=== PATIENT | male | born 1985 | race Caucasian/White ===

== ENCOUNTER 2022-05-19 15:09 | Outpatient (REF) | payer OTHER, SELFPAY | END 2022-05-19 15:10 | disposition home or self-care (01) | LOC: HO.LNP 15:09 | PROVIDERS: Visit Provider Hospitalist | DX: R35.0 Frequency of micturition (principal); R31.9 Hematuria, unspecified | CPT/HCPCS: 87086 ==

== ENCOUNTER 2022-06-19 09:16 | Outpatient (REF) | payer OTHER, SELFPAY ==
[2022-06-19 11:28] LABS: Hematocrit 45.8 % (42.0-52.0); Hemoglobin 14.8 g/dl (14.0-18.0); Mean Corpuscular HGB Conc 32.3 g/dl (31.0-36.0); Mean Corpuscular Hemoglobin 29.2 pg (27.0-33.0); Mean Corpuscular Volume 90.5 fL (80.0-98.0); Mean Platelet Volume 10.3 fL (9.4-12.4); Platelet Count 248 X10*3/uL (160-400); Red Blood Count 5.06 X10*6/uL (4.60-5.80); Red Cell Distribution Width 12.6 % (11.0-16.0); White Blood Count 6.5 X10*3/uL (4.8-10.8)
[2022-06-19 11:46] LABS: Alanine Aminotransferase 48 U/L (0-40); Albumin Level 4.2 g/dL (3.5-5.0); Alkaline Phosphatase 55 U/L (39-117); Anion Gap 16 (12-20); Aspartate Amino Transferase 26 U/L (5-37); Bilirubin Total 0.4 mg/dL (0.0-1.0); Blood Urea Nitrogen 12 mg/dL (9-16); Calcium 9.5 mg/dL (8.4-10.2); Carbon Dioxide 24 mmol/L (22-29); Chloride 106 mmol/L (96-108); Cholesterol 248 mg/dL; Estimated Glomerular Filt Rate > 60; Glucose Fasting 113 mg/dL (60-99); HDL Cholesterol 33 mg/dL; Potassium 4.5 mmol/L (3.3-5.1); Sodium 141 mmol/L (135-145); Triglycerides 444 mg/dL
[2022-06-19 11:59] LABS: TSH reflex Free T4 0.76 uIU/mL (0.32-4.0)
== END 2022-06-19 09:17 | disposition home or self-care (01) ==
LOC: HO.WFDLDS 09:16
PROVIDERS: Visit Provider Hospitalist
DX: Z00.00 Encounter for general adult medical examination without abnormal findings (principal); G47.19 Other hypersomnia
CPT/HCPCS: 36415; 80053; 80061; 84443; 85027

== ENCOUNTER → 2022-06-19 09:43 | Outpatient (REF) | payer OTHER, SELFPAY | LOC: HO.SL 09:43 | PROVIDERS: Visit Provider Hospitalist | DX: G47.19 Other hypersomnia (principal); R06.83 Snoring | CPT/HCPCS: 95806 ==

== ENCOUNTER 2022-08-04 12:19 | Outpatient (REF) | payer OTHER, SELFPAY ==
--- NOTE | ~2022-08-04 | XR_ITS ---
EXAMINATION: XR FOOT, LEFT CLINICAL INFORMATION: Achilles tendinitis, left leg COMPARISON: None
== END 2022-08-04 12:20 | disposition home or self-care (01) ==
LOC: HO.XRAY 12:19
PROVIDERS: PCP Hospitalist; Visit Provider Nurse Practitioner Family
DX: M76.62 Achilles tendinitis, left leg (principal)
CPT/HCPCS: 73620

== ENCOUNTER 2022-09-24 12:52 | Outpatient (REF) | payer OTHER, SELFPAY ==
--- NOTE | ~2022-09-24 | US_ITS ---
EXAMINATION: ULTRASOUND EXTREMITY NONVASCULAR CLINICAL INFORMATION: Achilles tendinitis, left leg. COMPARISON: None TECHNIQUE: Multiple 2-D grayscale and color Doppler ultrasound images of the left Achilles tendon were obtained. FINDINGS: Normal tendon and muscular striations are seen in the Achilles tendon and visualized muscle. No evidence for tear or retraction is seen. No abnormal fluid collections. The surrounding soft tissues are unremarkable. Color Doppler showed no abnormal vascular flow. US/US extremity nonvascular IMPRESSION: No evidence for Achilles tendon injury. If symptoms persist or worsen, MRI should be considered.
== END 2022-09-24 12:53 | disposition home or self-care (01) ==
LOC: HO.HMGCX 12:52
PROVIDERS: PCP Hospitalist; Visit Provider Nurse Practitioner Family
DX: M76.62 Achilles tendinitis, left leg (principal)
CPT/HCPCS: 76882

== ENCOUNTER 2023-04-21 09:24 | Emergency (ER) | payer MEDICAID, SELFPAY ==
--- NOTE | ~2023-04-21 | XR_ITS ---
EXAMINATION: XR CHEST CLINICAL INFORMATION: Chest pain and shortness of breath COMPARISON: None available. TECHNIQUE: 2 views of the chest were obtained. FINDINGS: Cardiac silhouette is normal in size. The lungs are mildly hypoinflated. There is no lobar consolidation. No pleural effusion or pneumothorax. No gross osseous abnormality. XR/XR chest 2V IMPRESSION: No acute pulmonary pathology.
--- NOTE | 2023-04-21 09:25 | ECG_ITS ---
Test Reason : CHEST PAIN Blood Pressure : / mmHG Vent. Rate : 096 BPM Atrial Rate : 096 BPM P-R Int : 128 ms QRS Dur : 080 ms QT Int : 334 ms P-R-T Axes : 024 003 006 degrees QTc Int : 421 ms Normal sinus rhythm Normal ECG No previous ECGs available Referred By: Generic ED Physician Electronically Signed By:ALMA DELIA TEIXEIRA
[2023-04-21 09:32] VITALS: BP 149/92; PULSE 101; RESP 16; TEMP 36.6; O2SAT 96; BMI 47.4
--- NOTE | 2023-04-21 09:38 | ED.CHESTPAIN ---
HPI - Chest Pain General Chief Complaint: Chest Pain Stated Complaint: Chest pain/Diff breathing/Jaw infection Time Seen by Provider: 04/21/23 09:37 Source: patient, RN notes reviewed and old records reviewed Mode of arrival: ambulatory History of Present Illness HPI narrative: 38-year-old male with a past medical history of HLD & HTN noncompliant on medications, anxiety, depression, presenting to ED complaining of substernal chest pain/pressure since waking yesterday, worsened with lying flat, relieved with sitting forward, and exertional SOB since this morning. Also reports subjective fever & myalgias x few days, and suspected right jaw/dental infection. Denies documented fever, chills, ear pain, recent travel, cigarette smoking, history of clots, pedal edema, calf pain, cough. MD complaint: chest pain and chest heaviness Related Data Previous Rx's Medication Instructions Recorded blood pressure kit-extra large #1 ea 05/19/22 fenofibric acid 105 mg tablet 105 mg PO DAILY #90 tabs 07/09/22 (Fibricor) lisinopril 5 mg tablet See Rx Instructions .Route 10/01/22 .COMPLEX #60 tabs sertraline 50 mg tablet (Zoloft) 50 mg PO DAILY #60 tabs 10/15/22 trazodone 50 mg tablet 100 mg PO BEDTIME #60 tabs 10/15/22 diclofenac sodium 1 % topical gel 2 g topical BID-QID PRN pain 12/22/22 (Arthritis Pain (diclofenac)) (scale score 4-6) #100 grams amoxicillin 875 mg-potassium 1 tab PO BID 7 days #14 tabs 04/21/23 clavulanate 125 mg tablet Allergies Allergy/AdvReac Type Severity Reaction Status Date / Time No Known Allergies Allergy Verified 10/15/22 08:50 Review of Systems Review of Systems: Constitutional: +subj Fever, No Chills, No Fatigue, No Malaise ENT/Mouth: +jaw pain, +dental pain, No Ear Pain, No Nasal Congestion, No sore throat, No Rhinorrhea, No Swallowing Difficulty Eyes: No Eye Pain, No Swelling, No Vision Changes Cardiovascular: + Chest Pain, No SOB, + Dyspnea on Exertion, No Orthopnea, No Edema, No Palpitations Respiratory: No Cough, No Sputum, No Wheezing, No Dyspnea Gastrointestinal: No Nausea, No Vomiting, No Diarrhea, No Constipation, No Abdominal pain Genitourinary: No Dysuria, No Urinary Frequency, No Hematuria, No Flank Pain, No Urinary Flow Changes, No Hesitancy Musculoskeletal: No joint pain, No Myalgias, No Joint Swelling Skin: No Skin Lesions, No rash Neuro: No Weakness, No Headache Yes all other systems are reviewed and are negative Constitutional: Constitutional: Reports as per [facility] Past Medical History Attestation statement: The following information was validated with the patient. Source: old records reviewed Family History Family History Mother Breast cancer Social History Social History Housing: House Alcohol intake: never Patient Tobacco Use Status: Never used Tobacco Tobacco use type: Cigarette Smoked in Last 30 Days: No e-Cigarette/Vaping Use: Never Used Second Hand Smoke Exposure: No Use of substances other than those prescribed or required for medical reasons: No Substance Use Type: Marijuana Last Used Substance: Just Prior to Admission Advance Directives: No Advance Directives Information Provided: Yes Current occupational status: employed Physical Exam Vital Signs: Vital Signs: Last Vital Signs Temp 98.0 F 04/21/23 12:21 Pulse 68 04/21/23 12:21 Resp 17 04/21/23 12:21 BP 131/66 04/21/23 12:21 Pulse Ox 95 04/21/23 12:21 O2 Del Method Room Air 04/21/23 12:21 BMI result Body Mass Index 47.4 Const: General: cooperative, healthy appearing and no acute distress Orientation/consciousness: patient oriented x3 Limitations: no limitations HEENT: Other: Right lower 2nd molar missing, no gingival swelling/erythema, fluctuance/induration or tenderness. No appreciable intraoral infection + right sided submandibular lymphadenopathy, tender, no erythema or facial swelling Head: Yes normal to inspection and Yes atraumatic Ears: hearing grossly normal bilaterally, external ears normal and TM's normal bilaterally General nose exam: Normal external nose present Face and sinus: Yes normal facial exam Throat: Yes posterior oropharynx normal, Yes tonsils normal and Yes uvula midline Eyes: General: appearance normal, both eyes and all related structures EOM: EOMs intact bilaterally Neck: Neck: Yes normal visual inspection and Yes no meningeal signs Chest: Chest palpation & inspection: normal inspection of the chest, no crepitus and no tenderness Resp: Effort & Inspection: normal respiratory effort and no respiratory distress Auscultation: clear to auscultation bilaterally and no wheezes Cardio: Rate: regular rate Heart sounds: S1 normal heart sound present and S2 normal heart sound present GI: Inspection: Yes normal to inspection Palpation (GI): Soft to palpation, nontender, no guarding and not rigid : General: Yes no CVA tenderness Back/Spine/Pelvis: Back: no CVA tenderness Skin: Rashes: no rashes Wounds: no wounds Neuro: General: patient oriented x3, tone normal and no meningeal signs Cranial nerves: Yes CN's II-XII intact bilaterally Gait exam (Neuro): Normal gait present Extrem: General: Yes normal to inspection, Yes no pedal edema and Yes no calf tenderness Course Course Course Narrative: -1037-- CBC without leukocytosis. Chemistry wtihout acute electrolyte abnormalities requiring intervention. Coags WNL. D-dimer negative > PE unlikely. Covid and flu negative. -initial troponin negative > will obtain 2hr repeat due to hx XR chest 2V IMPRESSION: No acute pulmonary pathology. -1356--repeat troponin equivocal, mi unlikely. Will DC patient with p.o. antibiotics for lymphadenopathy and close PCP follow-up Medications Administered Discontinued Medications Generic Name Dose Route Start Last Admin Trade Name Freq PRN Reason Stop Dose Admin Ketorolac Tromethamine 15 mg 04/21/23 11:06 04/21/23 11:16 Ketorolac Tromethamine 15 Mg/Ml Vial IVPUSH 04/21/23 11:07 15 mg ONCE ONE Administration Medical Decision Making Medical Decision Making [facility] Narrative: 38-year-old male with a past medical history of HLD & HTN noncompliant on medications, anxiety, depression, presenting to ED complaining of substernal chest pain/pressure since waking yesterday, worsened with lying flat, relieved with sitting forward, and exertional SOB since this morning. On exam initially tachycardic, NAD, nontoxic appearing, chest pain not reproducible, lungs CTA, right-sided submandibular lymphadenopathy noted without appreciable intraoral infection or abscess. Concern for viral syndrome vs myocarditis/pericarditis vs PE vs ACS vs early dental infection. No evidence of [employer]/retropharyngeal abscess or drainable collection at this time. Lower suspicion for pneumonia or pneumothorax Plan: EKG, labs, CXR, viral testing Please refer to course for remaining clinical decision making, interpretation of labs/imaging results, and discussions with consultants and/or family members. Differential Diagnosis Differential Diagnoses: The differential diagnosis associated with the presentation includes As above Admission/Observation Consideration of admission/observation: Escalation of care including admission/observation considered Lab Data MDM Lab Attestation statement: I reviewed the patient's lab results. As above. 04/21/23 10:01 04/21/23 10:01 Labs: Lab Results 04/21/23 04/21/23 04/21/23 Range/Units 10:01 10:01 10:01 WBC 7.5 (4.8-10.8) X10*3/uL RBC 4.88 (4.60-5.80) X10*6/uL Hgb 14.6 (14.0-18.0) g/dl Hct 43.6 (42.0-52.0) % MCV 89.3 (80.0-98.0) fL MCH 29.9 (27.0-33.0) pg MCHC 33.5 (31.0-36.0) g/dl RDW 12.5 (11.0-16.0) % Plt Count 228 (160-400) X10*3/uL MPV 10.1 (9.4-12.4) fL Immature Gran % (Auto) 0.3 (0.0-0.4) % Neut % (Auto) 65.9 (45-73) % Lymph % (Auto) 27.5 (20-40) % [place] % (Auto) 5.2 (2-11) % Eos % (Auto) 0.7 (0-4) % Baso % (Auto) 0.4 (0-2) % Lymph # (Auto) 2.1 (1.2-4.9) X10*3/uL [place] # (Auto) 0.4 (0.1-1.2) X10*3/uL Eos # (Auto) 0.1 (0.0-0.4) X10*3/uL Baso # (Auto) 0.0 (0.0-0.2) X10*3/uL Abs Immat Gran (auto) 0.02 (0.00-0.03) X10*3/uL Absolute Neuts (auto) 5.0 (2.0-8.3) x10*3/uL Absolute Nucleated RBC 0.000 (0.0-0.012) X10*3/uL Nucleated RBC % (auto) 0.0 (0.0-0.2) /100WBC PT 11.2 (11.1-13.3) SEC INR 0.9 (0.9-1.1) D-Dimer High Sensitivty 219 NG/ML Sodium 139 (135-145) mmol/L Potassium 4.5 (3.3-5.1) mmol/L Chloride 107 (96-108) mmol/L Carbon Dioxide 24 (22-29) mmol/L Anion Gap 13 (12-20) BUN 13 (9-16) mg/dL Creatinine 1.18 (0.5-1.4) mg/dL Estim Creat Clear Calc 142.2 Estimated GFR > 60 Random Glucose 209 H (60-115) mg/dL Calcium 9.7 (8.4-10.2) mg/dL Total Bilirubin 0.4 (0.0-1.0) mg/dL Direct Bilirubin 0.1 (0.0-0.5) mg/dL AST 26 (5-37) U/L ALT 53 H (0-40) U/L Alkaline Phosphatase 60 (39-117) U/L Troponin I High Sens (<3.5-35.0) ng/L B-Natriuretic Peptide (<100) pg/mL Total Protein 7.4 (6.5-8.0) g/dL Albumin 4.2 (3.5-5.0) g/dL COVID-19 (HARRY) (Negative) COVID-19 Clin Com Influenza Type A (ANGELA) (Negative) Influenza Type B (ANGELA) (Negative) Influenza A & B Note 04/21/23 04/21/23 04/21/23 Range/Units 10:01 10:01 10:01 WBC (4.8-10.8) X10*3/uL RBC (4.60-5.80) X10*6/uL Hgb (14.0-18.0) g/dl Hct (42.0-52.0) % MCV (80.0-98.0) fL MCH (27.0-33.0) pg MCHC (31.0-36.0) g/dl RDW (11.0-16.0) % Plt Count (160-400) X10*3/uL MPV (9.4-12.4) fL Immature Gran % (Auto) (0.0-0.4) % Neut % (Auto) (45-73) % Lymph % (Auto) (20-40) % [place] % (Auto) (2-11) % Eos % (Auto) (0-4) % Baso % (Auto) (0-2) % Lymph # (Auto) (1.2-4.9) X10*3/uL [place] # (Auto) (0.1-1.2) X10*3/uL Eos # (Auto) (0.0-0.4) X10*3/uL Baso # (Auto) (0.0-0.2) X10*3/uL Abs Immat Gran (auto) (0.00-0.03) X10*3/uL Absolute Neuts (auto) (2.0-8.3) x10*3/uL Absolute Nucleated RBC (0.0-0.012) X10*3/uL Nucleated RBC % (auto) (0.0-0.2) /100WBC PT (11.1-13.3) SEC INR (0.9-1.1) D-Dimer High Sensitivty NG/ML Sodium (135-145) mmol/L Potassium (3.3-5.1) mmol/L Chloride (96-108) mmol/L Carbon Dioxide (22-29) mmol/L Anion Gap (12-20) BUN (9-16) mg/dL Creatinine (0.5-1.4) mg/dL Estim Creat Clear Calc Estimated GFR Random Glucose (60-115) mg/dL Calcium (8.4-10.2) mg/dL Total Bilirubin (0.0-1.0) mg/dL Direct Bilirubin (0.0-0.5) mg/dL AST (5-37) U/L ALT (0-40) U/L Alkaline Phosphatase (39-117) U/L Troponin I High Sens < 2.7 (<3.5-35.0) ng/L B-Natriuretic Peptide 14 (<100) pg/mL Total Protein (6.5-8.0) g/dL Albumin (3.5-5.0) g/dL COVID-19 (HARRY) Negative (Negative) COVID-19 Clin Com See Note Influenza Type A (ANGELA) (Negative) Influenza Type B (ANGELA) (Negative) Influenza A & B Note 04/21/23 04/21/23 Range/Units 10:01 12:15 WBC (4.8-10.8) X10*3/uL RBC (4.60-5.80) X10*6/uL Hgb (14.0-18.0) g/dl Hct (42.0-52.0) % MCV (80.0-98.0) fL MCH (27.0-33.0) pg MCHC (31.0-36.0) g/dl RDW (11.0-16.0) % Plt Count (160-400) X10*3/uL MPV (9.4-12.4) fL Immature Gran % (Auto) (0.0-0.4) % Neut % (Auto) (45-73) % Lymph % (Auto) (20-40) % [place] % (Auto) (2-11) % Eos % (Auto) (0-4) % Baso % (Auto) (0-2) % Lymph # (Auto) (1.2-4.9) X10*3/uL [place] # (Auto) (0.1-1.2) X10*3/uL Eos # (Auto) (0.0-0.4) X10*3/uL Baso # (Auto) (0.0-0.2) X10*3/uL Abs Immat Gran (auto) (0.00-0.03) X10*3/uL Absolute Neuts (auto) (2.0-8.3) x10*3/uL Absolute Nucleated RBC (0.0-0.012) X10*3/uL Nucleated RBC % (auto) (0.0-0.2) /100WBC PT (11.1-13.3) SEC INR (0.9-1.1) D-Dimer High Sensitivty NG/ML Sodium (135-145) mmol/L Potassium (3.3-5.1) mmol/L Chloride (96-108) mmol/L Carbon Dioxide (22-29) mmol/L Anion Gap (12-20) BUN (9-16) mg/dL Creatinine (0.5-1.4) mg/dL Estim Creat Clear Calc Estimated GFR Random Glucose (60-115) mg/dL Calcium (8.4-10.2) mg/dL Total Bilirubin (0.0-1.0) mg/dL Direct Bilirubin (0.0-0.5) mg/dL AST (5-37) U/L ALT (0-40) U/L Alkaline Phosphatase (39-117) U/L Troponin I High Sens < 2.7 (<3.5-35.0) ng/L B-Natriuretic Peptide (<100) pg/mL Total Protein (6.5-8.0) g/dL Albumin (3.5-5.0) g/dL COVID-19 (HARRY) (Negative) COVID-19 Clin Com Influenza Type A (ANGELA) Negative (Negative) Influenza Type B (ANGELA) Negative (Negative) Influenza A & B Note See Note Independent Interpretation I performed an independent interpretation of an: EKG (EKG normal sinus rhythm at a rate of 96. GA interval 128. QTC 421. No STEMI) Interpretation: CXR without infiltrate or consolidation, agree with radiologist's interpretation. Radiology Impression Discussion of test interpretation with radiology: I have reviewed the radiologist's reading. Radiologist Impression: XR chest 2V IMPRESSION: No acute pulmonary pathology. External Record Review External record reviewed: Inpatient record, Office record, Outpatient record, Prior outpatient labs, Prior outpatient radiology, Primary care record and Outside ED record Tests considered The following testing was considered but not selected: As above Prescription Management I considered prescription management with: Pain Medication and Antibiotic Chronic Conditions Patient?s care impacted by: Hypertension Discharge Plan Discharge Clinical Impression: Chest pain, Shortness of breath, Lymphadenopathy Patient Disposition: Home, Self-Care Instructions: Chest Pain (DC), Lymphadenopathy (ED) Additional Instructions: Your blood work and chest x-ray were reassuring He tested negative for COVID and flu Augmentin is an antibiotic please take as prescribed Please have close follow-up with her dentist as well as primary care doctor. You may also follow-up with Cardiology as needed If symptoms persist or worsen return to the ED Prescriptions: New amoxicillin-pot clavulanate 875-125 mg tablet 1 tab PO BID 7 Days Qty: 14 0RF No Action fenofibric acid [Fibricor] 105 mg tablet 105 mg PO DAILY Qty: 90 6RF lisinopril 5 mg tablet See Rx Instructions .ROUTE .COMPLEX Qty: 60 2RF Dose Instruction: TAKE 1 TABLET BY MOUTH TWICE A DAY Rx Instructions: TAKE 1 TABLET BY MOUTH TWICE A DAY diclofenac sodium [Arthritis Pain (diclofenac)] 1 % gel 2 g topical BID-QID PRN (Reason: pain (scale score 4-6)) Qty: 100 1RF Rx Instructions: apply to achilles tendon area of pain do not use on other areas (DME) blood pressure kit-extra large Kit See Rx Instructions .Route Qty: 1 0RF Rx Instructions: check blood pressure daily until stable then 1-2 times per week sertraline [Zoloft] 50 mg tablet 50 mg PO DAILY Qty: 60 3RF Rx Instructions: start with one half of a tablet and if well tolerated after one week take the whole tab every morning trazodone 50 mg tablet 100 mg PO BEDTIME Qty: 60 2RF Rx Instructions: take 3 hours prior to bed time and repeat at bedtime as needed/desired I recommend you start with two and back of if you are drowsy with that dose Referrals: [facility] [place] [facility] [Provider Group] Sherlyn Cui NP [Primary Care Provider] -
[2023-04-21 09:43] VITALS: PULSE 93
--- NOTE | 2023-04-21 09:44 | PC.NURSE ---
pt a&ox3. respirations even and unlabored. skin warm pink and dry. pt reports midsternal chest pain that began yesterday. pt reports the pain worsens when he walks around. pt denies cough.pt lung sounds clear bilaterally. pt reports pain in right jaw and neck. normal sinus on tele.
--- NOTE | 2023-04-21 09:49 | ECG_ITS ---
Test Reason : chest pain Blood Pressure : / mmHG Vent. Rate : 087 BPM Atrial Rate : 087 BPM P-R Int : 146 ms QRS Dur : 082 ms QT Int : 336 ms P-R-T Axes : 009 000 010 degrees QTc Int : 404 ms Normal sinus rhythm Normal ECG When compared with ECG of 21-APR-2023 09:31, No significant change was found Referred By: Kaye Rand Electronically Signed By:ALMA DELIA TEIXEIRA
[2023-04-21 10:11] LABS: MANUAL DIFF FLAG NO
[2023-04-21 10:15] LABS: Basophils Percent Auto 0.4 % (0-2); Eosinophils Absolute Auto 0.1 X10*3/uL (0.0-0.4); Eosinophils Percent Auto 0.7 % (0-4); Hematocrit 43.6 % (42.0-52.0); Hemoglobin 14.6 g/dl (14.0-18.0); Imm Gran Abs Auto 0.02 X10*3/uL (0.00-0.03); Imm Gran Pct Auto 0.3 % (0.0-0.4); Lymphocytes Absolute Auto 2.1 X10*3/uL (1.2-4.9); Lymphocytes Percent Auto 27.5 % (20-40); Mean Corpuscular HGB Conc 33.5 g/dl (31.0-36.0); Mean Corpuscular Hemoglobin 29.9 pg (27.0-33.0); Mean Corpuscular Volume 89.3 fL (80.0-98.0); Mean Platelet Volume 10.1 fL (9.4-12.4); Monocytes Absolute Auto 0.4 X10*3/uL (0.1-1.2); Monocytes Percent Auto 5.2 % (2-11); Neutrophils Percent Auto 65.9 % (45-73); Platelet Count 228 X10*3/uL (160-400); Red Blood Count 4.88 X10*6/uL (4.60-5.80); Red Cell Distribution Width 12.5 % (11.0-16.0); White Blood Count 7.5 X10*3/uL (4.8-10.8)
[2023-04-21 10:22] LABS: INTERNATIONAL NORM RATIO 0.9 (0.9-1.1); Prothrombin Time 11.2 SEC (11.1-13.3)
[2023-04-21 10:24] LABS: D Dimer High Sensitivity 219 NG/ML
[2023-04-21 10:35] LABS: Alanine Aminotransferase 53 U/L (0-40); Albumin Level 4.2 g/dL (3.5-5.0); Alkaline Phosphatase 60 U/L (39-117); Anion Gap 13 (12-20); Aspartate Amino Transferase 26 U/L (5-37); Bilirubin Direct 0.1 mg/dL (0.0-0.5); Bilirubin Total 0.4 mg/dL (0.0-1.0); Blood Urea Nitrogen 13 mg/dL (9-16); COVID-19 Test Negative (Negative); Calcium 9.7 mg/dL (8.4-10.2); Carbon Dioxide 24 mmol/L (22-29); Chloride 107 mmol/L (96-108); Creatinine Clr Calc Pharmacy 142.2; Estimated Glomerular Filt Rate > 60; Glucose Random 209 mg/dL (60-115); IDNOW Serial# 9DB6401D; IDNOW Serial# BCCEAD1C; Influenza A Negative (Negative); Influenza B2 Negative (Negative); Potassium 4.5 mmol/L (3.3-5.1); Sodium 139 mmol/L (135-145); Total Protein 7.4 g/dL (6.5-8.0)
[2023-04-21 10:40] LABS: B Type Natriuretic Peptide 14 pg/mL (<100)
[2023-04-21 10:47] LABS: Troponin-I High Sensitivity < 2.7 ng/L (<3.5-35.0)
[2023-04-21] MEDS: Ketorolac Tromethamine 15 MG/ML VIAL IVPUSH (11:16)
[2023-04-21 12:21] VITALS: BP 131/66; PULSE 68; RESP 17; TEMP 36.7; O2SAT 95
[2023-04-21 13:47] LABS: Troponin-I High Sensitivity < 2.7 ng/L (<3.5-35.0)
[2023-04-21 14:34] VITALS: BP 132/76; PULSE 67; RESP 20; O2SAT 97
== END 2023-04-21 14:36 | disposition home or self-care (01) ==
PROVIDERS: Physician Assistant; Emergency Provider Emergency Medicine; PCP Hospitalist
DX: R07.89 Other chest pain (principal); R06.02 Shortness of breath; R59.1 Generalized enlarged lymph nodes; Z91.148 Patient's other noncompliance with medication regimen for other reason; Z20.822 Contact with and (suspected) exposure to COVID-19; Z20.828 Contact with and (suspected) exposure to other viral communicable diseases; Z79.899 Other long term (current) drug therapy
CPT/HCPCS: 36415; 71046; 80048; 80076; 83880; 84484; 85025; 85379; 85610; 87502; 87635; 93005; 96374; 99284; 99285; J1885

== ENCOUNTER 2023-04-22 09:09 | Emergency (ER) | payer MEDICAID, SELFPAY ==
--- NOTE | ~2023-04-22 | CT_ITS ---
EXAMINATION: CT SOFT TISSUE NECK WITH CONTRAST CLINICAL INFORMATION: Evaluate dental abscess. Neck pain. COMPARISON: None available. TECHNIQUE: Following the intravenous administration of 80 mL of Omnipaque 350 intravenous contrast, helical imaging was performed in the axial plane with generation of coronal and sagittal reformatted images. This CT examination was performed using dose optimization techniques as appropriate, variously including the following: *Automated exposure control *Adjustment of mA and/or kV according to patient size (this includes techniques or standardized protocols for targeted exams where dose is matched to indication/reason for exam; i.e. extremities or head) *Use of iterative reconstruction technique DLP: 677.68 mGy-cm (for the CT exam focused on the neck) FINDINGS: The maxillofacial bones are intact. There is no evidence of periapical lucencies. No active periodontal disease. Mild ductal dilatation is seen within both submandibular glands. 0.3 cm calcified stone is present within the left submandibular gland. A stone within proximal right Larue's duct projecting superior to the right submandibular gland measures up to 0.8 cm maximum dimension (coronal reformatted image 31 of 79). There is small amount of fluid and edema in the soft tissues around the right submandibular gland and submandibular space, including around the anterior belly of the digastric muscle and adjacent to the right mylohyoid muscle at the floor of the mouth. However, there is no evidence of a rim-enhancing collection or soft tissue gas. The edema within the right face tracks along the platysma muscle into the neck. Inferior to the digastric muscles, mild amount of edema is seen extending to the left of midline. A large lymph node in the right submandibular region (level 1B lymph node) is 1.4 cm in short axis dimension. The decreased attenuation within a right-sided level 1B lymph node of 1 cm axis dimension is consistent with lymphadenitis. Mildly enlarged right and left level 2A lymph nodes are present; these measure up to 1.4 cm short axis dimension on the right and 1.2 cm short axis dimension on the left. Parotid glands and thyroid gland are normal. The nasopharynx, oral cavity, tongue base, and tonsillar pillars are unremarkable. No contour abnormality or pathologic enhancement within the oral cavity or pharyngeal mucosal space. The parapharyngeal fat planes are preserved. The hypopharynx, epiglottis, and preepiglottic space are normal. Laryngeal structures normal. The visualized proximal esophagus is normal. Skull base is normal. The visualized intracranial structures are normal. Mild mucosal thickening of inferior maxillary sinuses. Otherwise, the paranasal sinuses and mastoid air cells are well aerated. The orbital page, globes and retrobulbar soft tissues are intact. Mild spondylosis of the cervical spine. No perivertebral soft tissue swelling. CT/CT soft tissue neck w IV con IMPRESSION: A stone is present within the left submandibular gland and stone is present within the right Georgette's duct. There are imaging findings of right-sided sialoadenitis with edema and fluid around the right submandibular gland and tracking along the platysma muscle into the neck. There is edema/inflammation along the anterior belly of the right digastric muscle and adjacent to the mylohyoid muscle without soft tissue abscess. There are associated findings of lymphadenitis/lymphadenopathy. No evidence of periodontal disease.
--- NOTE | ~2023-04-22 | CT_ITS ---
EXAMINATION: CT CHEST WITH CONTRAST CLINICAL INFORMATION: Chest pain dental abscess COMPARISON: None available. TECHNIQUE: Multidetector volumetric CT imaging of the chest was obtained after the administration of 50 mL of Omnipaque 350 intravenous contrast without immediate adverse reactions. Axial MIP volume rendering provided. Sagittal and coronal reformatted images were obtained. This CT examination was performed using dose optimization techniques as appropriate, variously including the following: *Automated exposure control *Adjustment of mA and/or kV according to patient size (this includes techniques or standardized protocols for targeted exams where dose is matched to indication/reason for exam; i.e. extremities or head) *Use of iterative reconstruction technique DLP: 1004 mGy-cm FINDINGS: LUNGS/PLEURA: A few bilateral multiple pulmonary nodules are noted. For example a 2 mm pleural-based nodular focus along the posterior lateral aspect of the right lower lobe (series 9, image 337). 4 mm nodular focus along the lateral aspect of the left lower lobe see series 9, image 352). Central airways are patent. No pneumothorax. No large pleural effusion. MEDIASTINUM: Heart is not enlarged. No pericardial effusion. No coronary artery calcifications. Aorta is nonaneurysmal. Main pulmonary artery is not enlarged. No enlarged lymph nodes per size criteria. Visualized portions of the thyroid are unremarkable. AXILLA: No lymphadenopathy. UPPER ABDOMEN: Spleen is enlarged measuring up to 15.5 cm. Decreased hepatic attenuation suggesting hepatic steatosis. OSSEOUS STRUCTURES: Multilevel degenerative changes of the thoracolumbar spine. CT/CT chest w IV con IMPRESSION: 1. No acute process of the chest identified. 2. Multiple bilateral pulmonary nodules are noted the largest measuring up to 4 mm. Follow-up as per Fleischner criteria. 3. Spleen is enlarged measuring up to 15.5 cm. 4. Decreased hepatic attenuation suggesting hepatic steatosis. Various management parameters for solitary pulmonary nodules are in the literature. According to the Fleischner Society, recommendations for pulmonary nodules are as follows: According to the UPDATED 2017 Fleischner Society recommendations, the advised follow-up imaging for solid nodules < 6 mm is: LOW RISK PATIENT: No routine follow-up. HIGH RISK PATIENT: Optional CT at 12 months.
[2023-04-22 09:40] VITALS: BP 151/79; PULSE 84; RESP 16; TEMP 37.1; O2SAT 98; BMI 47.1
[2023-04-22 10:11] LABS: MANUAL DIFF FLAG NO
[2023-04-22 10:12] LABS: Basophils Percent Auto 0.3 % (0-2); Eosinophils Absolute Auto 0.1 X10*3/uL (0.0-0.4); Eosinophils Percent Auto 0.6 % (0-4); Hematocrit 43.4 % (42.0-52.0); Hemoglobin 14.5 g/dl (14.0-18.0); Imm Gran Abs Auto 0.03 X10*3/uL (0.00-0.03); Imm Gran Pct Auto 0.3 % (0.0-0.4); Lymphocytes Absolute Auto 1.6 X10*3/uL (1.2-4.9); Lymphocytes Percent Auto 14.6 % (20-40); Mean Corpuscular HGB Conc 33.4 g/dl (31.0-36.0); Mean Corpuscular Hemoglobin 29.5 pg (27.0-33.0); Mean Corpuscular Volume 88.2 fL (80.0-98.0); Mean Platelet Volume 9.8 fL (9.4-12.4); Monocytes Absolute Auto 0.9 X10*3/uL (0.1-1.2); Monocytes Percent Auto 8.6 % (2-11); Neutrophils Absolute Auto 8.1 x10*3/uL (2.0-8.3); Neutrophils Percent Auto 75.6 % (45-73); Platelet Count 218 X10*3/uL (160-400); Red Blood Count 4.92 X10*6/uL (4.60-5.80); Red Cell Distribution Width 12.4 % (11.0-16.0); White Blood Count 10.7 X10*3/uL (4.8-10.8)
[2023-04-22 10:21] LABS: Lactic Acid 1.5 mmol/L (0.5-2.0)
[2023-04-22 10:24] LABS: Anion Gap 14 (12-20); Blood Urea Nitrogen 11 mg/dL (9-16); Calcium 9.5 mg/dL (8.4-10.2); Carbon Dioxide 22 mmol/L (22-29); Chloride 105 mmol/L (96-108); Creatinine Clr Calc Pharmacy 139.5; Estimated Glomerular Filt Rate > 60; Glucose Random 132 mg/dL (60-115); Potassium 4.4 mmol/L (3.3-5.1); Sodium 137 mmol/L (135-145)
[2023-04-22 10:34] LABS: Troponin-I High Sensitivity < 2.7 ng/L (<3.5-35.0)
[2023-04-22 12:19] VITALS: BP 129/65; PULSE 84; RESP 20; TEMP 37.8
--- NOTE | 2023-04-22 12:23 | ED_ITS ---
HPI - Chest Pain General Chief Complaint: General Medical Stated Complaint: seen yesterday/chest pain / multiple symptoms Time Seen by Provider: 04/22/23 12:11 Source: patient and old records reviewed Mode of arrival: ambulatory Limitations: no limitations History of Present Illness HPI narrative: 38 yo male with hx of HTN, HLD, obesity, depression here with c/o R lower dental pain seen yesterday along with chest pain - he has only taken 2 doses of augmentin. He had negative cardiac workup yesterday. He notes today he has all over body aches, has mouth pain, pain in the neck and pain in sternum if you touch it. He took tylenol at 6am. He has R sided tooth and jaw pain. He still has sternal pain. He does work outside but no known tick bites, no travel. He states he does not use IVDA and has no hardware in his body. He feels terrible was tested negative for flu and COVID yesterday MD complaint: chest pain Onset (ago): day(s) (2) Timing of current episode: constant Prior episodes: No Onset: during rest Pain location: substernal Pain radiation: none Severity: moderate Quality: aching and dull Relieving factors: nothing Exacerbating factors: palpation and movement Context: recent illness Associated symptoms: nausea, fever, cough and other (painful swollen jaw, body aches) Treatment prior to arrival: other (tylenol) Related Data Previous Rx's Medication Instructions Recorded blood pressure kit-extra large #1 ea 05/19/22 fenofibric acid 105 mg tablet 105 mg PO DAILY #90 tabs 07/09/22 (Fibricor) lisinopril 5 mg tablet See Rx Instructions .Route 10/01/22 .COMPLEX #60 tabs sertraline 50 mg tablet (Zoloft) 50 mg PO DAILY #60 tabs 10/15/22 trazodone 50 mg tablet 100 mg PO BEDTIME #60 tabs 10/15/22 diclofenac sodium 1 % topical gel 2 g topical BID-QID PRN pain 12/22/22 (Arthritis Pain (diclofenac)) (scale score 4-6) #100 grams amoxicillin 875 mg-potassium 1 tab PO BID 7 days #14 tabs 04/21/23 clavulanate 125 mg tablet morphine 15 mg immediate release 15 mg PO Q4-6H PRN pain #15 tabs 04/22/23 tablet ondansetron 4 mg disintegrating 4 mg PO Q8H PRN nausea and 04/22/23 tablet vomiting #20 tabs Allergies Allergy/AdvReac Type Severity Reaction Status Date / Time No Known Allergies Allergy Verified 10/15/22 08:50 Review of Systems Review of Systems: Constitutional : pos Fever, pos Chills, pos Fatigue ENT/Mouth : No sore throat, No Rhinorrhea Eyes: No Eye Pain, No Swelling, No Redness, pos dental pain, pos jaw pain Cardiovascular : pos Chest Pain, No SOB, No Dyspnea on Exertion Respiratory : No Cough, No Sputum Gastrointestinal : pos Nausea, No Vomiting, No Diarrhea, No abdominal Pain Genitourinary : No Dysuria, No Urinary Frequency, No Hematuria, Musculoskeletal : No joint pain, pos Myalgias, No Joint Swelling Skin : No Skin Lesions, No rash Neuro : No Weakness, No Numbness, No Dizziness, positive Headache Psych : No Anxiety/Panic, No Depression Heme/Lymph: No Bruising, No Bleeding,pos Lymphadenopathy Endocrine : No Polyuria, No Polydipsia All other systems reviewed and are negative [facility] Past Medical History Attestation statement: The following information was validated with the patient. Medical History Anxiety and depression Essential hypertension High cholesterol Family History Family History Mother Breast cancer Social History Social History Housing: House Alcohol intake: never Patient Tobacco Use Status: Never used Tobacco Tobacco use type: Cigarette Smoked in Last 30 Days: No e-Cigarette/Vaping Use: Never Used Second Hand Smoke Exposure: No Use of substances other than those prescribed or required for medical reasons: Yes Substance Use Type: Marijuana Advance Directives: No Advance Directives Information Provided: No Current occupational status: employed Physical Exam Vital Signs: Vital Signs: Last Vital Signs Temp 98.9 F 04/22/23 15:59 Pulse 76 04/22/23 15:59 Resp 20 04/22/23 15:59 BP 138/67 04/22/23 14:00 Pulse Ox 96 04/22/23 15:59 O2 Del Method Room Air 04/22/23 15:59 BMI result Body Mass Index 47.1 Appearance: Alert. Oriented X3. No acute distress. Eyes: Pupils equal, round and reactive to light. ENT: Pharynx right lower molar no abscess felt no obvious mass, no trismus pharynx is normal, submandibular swelling noted no SCM swelling, no sublingual swelling Neck: Normal inspection. Neck supple. CVS: Normal heart rate and rhythm. Pulses normal. Chest: ttp along xiphoid area Respiratory: No respiratory distress. Breath sounds normal. Abdomen: Soft and nontender. Skin: Skin warm and dry. Normal skin color. Normal skin turgor. Extremities: No lower extremity edema. No calf ttp Neuro: Oriented X 3. No motor deficit. No sensory deficit. Course Course Course Narrative: patient with sialoadenitis no signs of sepsis - I have ordered zosyn, no stone visible no abscess will need salivary expectorants and to take augmentin would refer to ENT he has no airway issues. Reevaluation(s) Reevaluation #1: will continue on augmentin and refer to ENT not toxic and feeling better Reevaluation #2: no further swelling no airway issues Medications Administered Discontinued Medications Generic Name Dose Route Start Last Admin Trade Name Freq PRN Reason Stop Dose Admin Sodium Chloride 1,000 mls @ 999 mls/hr 04/22/23 13:00 04/22/23 14:46 Ns IV 04/22/23 14:00 Infused .Q1H1M BEN Infusion Piperacillin Sod/Tazobactam 50 mls @ 100 mls/hr 04/22/23 14:46 04/22/23 16:40 Sod 3.375 gm/ Sodium Chloride IV 04/22/23 15:15 Infused ONCE ONE Infusion Iohexol 80 ml 04/22/23 13:32 04/22/23 13:34 Iohexol 350 Mg/Ml 100 Ml Infus..Btl IV 04/22/23 13:33 80 ml ONCE ONE Administration Ketorolac Tromethamine 15 mg 04/22/23 12:29 04/22/23 12:41 Ketorolac Tromethamine 15 Mg/Ml Vial IVPUSH 04/22/23 12:30 15 mg ONCE ONE Administration Morphine Sulfate 15 mg 04/22/23 12:42 04/22/23 12:48 Morphine Sulfate Immed Release 15 Mg Tablet PO 04/22/23 12:43 15 mg ONCE ONE Administration Procedures Procedure Narrative Procedure Narrative: limited bedside ECHO - no perdicardial effusion seen Medical Decision Making Medical Decision Making MDM Narrative: 38 yo male with hx of HTN, HLD, obesity, depression just seen for CP yesterday and treated for R lower dental infection with augmentin taken two doses he feels his neck is more swollen and painful and he still has xiphoid pain. At this time no pericardial effusion, trop negative, recent viral panel and CXR negative - pericarditis negative. At this time PERC negative. I am going to send off labs, tick panel, mono and obtain CT scan of neck and chest for deeper space infection. I have ordered toradol and PO morphine for pain Differential Diagnosis Differential Diagnoses: The differential diagnosis associated with the presentation includes atypical chest pain, CWP, abscess, deeper space infection Admission/Observation Consideration of admission/observation: Escalation of care including admission/observation considered will continue on augmentin and refer to ENT not toxic and feeling better no abscess no airway involvement Lab Data [facility] Lab Attestation statement: I reviewed the patient's lab results. 04/22/23 10:05 04/22/23 10:05 Labs: Lab Results 04/22/23 04/22/23 04/22/23 Range/Units 10:05 10:05 10:05 WBC 10.7 (4.8-10.8) X10*3/uL RBC 4.92 (4.60-5.80) X10*6/uL Hgb 14.5 (14.0-18.0) g/dl Hct 43.4 (42.0-52.0) % MCV 88.2 (80.0-98.0) fL MCH 29.5 (27.0-33.0) pg MCHC 33.4 (31.0-36.0) g/dl RDW 12.4 (11.0-16.0) % Plt Count 218 (160-400) X10*3/uL MPV 9.8 (9.4-12.4) fL Immature Gran % (Auto) 0.3 (0.0-0.4) % Neut % (Auto) 75.6 H (45-73) % Lymph % (Auto) 14.6 L (20-40) % [place] % (Auto) 8.6 (2-11) % Eos % (Auto) 0.6 (0-4) % Baso % (Auto) 0.3 (0-2) % Lymph # (Auto) 1.6 (1.2-4.9) X10*3/uL [place] # (Auto) 0.9 (0.1-1.2) X10*3/uL Eos # (Auto) 0.1 (0.0-0.4) X10*3/uL Baso # (Auto) 0.0 (0.0-0.2) X10*3/uL Abs Immat Gran (auto) 0.03 (0.00-0.03) X10*3/uL Absolute Neuts (auto) 8.1 (2.0-8.3) x10*3/uL Absolute Nucleated RBC 0.000 (0.0-0.012) X10*3/uL Nucleated RBC % (auto) 0.0 (0.0-0.2) /100WBC Sodium 137 (135-145) mmol/L Potassium 4.4 (3.3-5.1) mmol/L Chloride 105 (96-108) mmol/L Carbon Dioxide 22 (22-29) mmol/L Anion Gap 14 (12-20) BUN 11 (9-16) mg/dL Creatinine 1.20 (0.5-1.4) mg/dL Estim Creat Clear Calc 139.5 Estimated GFR > 60 Random Glucose 132 H (60-115) mg/dL Lactic Acid (0.5-2.0) mmol/L Calcium 9.5 (8.4-10.2) mg/dL Troponin I High Sens < 2.7 (<3.5-35.0) ng/L Monoscreen (Negative) 04/22/23 04/22/23 Range/Units 10:06 13:37 WBC (4.8-10.8) X10*3/uL RBC (4.60-5.80) X10*6/uL Hgb (14.0-18.0) g/dl Hct (42.0-52.0) % MCV (80.0-98.0) fL MCH (27.0-33.0) pg MCHC (31.0-36.0) g/dl RDW (11.0-16.0) % Plt Count (160-400) X10*3/uL MPV (9.4-12.4) fL Immature Gran % (Auto) (0.0-0.4) % Neut % (Auto) (45-73) % Lymph % (Auto) (20-40) % [place] % (Auto) (2-11) % Eos % (Auto) (0-4) % Baso % (Auto) (0-2) % Lymph # (Auto) (1.2-4.9) X10*3/uL [place] # (Auto) (0.1-1.2) X10*3/uL Eos # (Auto) (0.0-0.4) X10*3/uL Baso # (Auto) (0.0-0.2) X10*3/uL Abs Immat Gran (auto) (0.00-0.03) X10*3/uL Absolute Neuts (auto) (2.0-8.3) x10*3/uL Absolute Nucleated RBC (0.0-0.012) X10*3/uL Nucleated RBC % (auto) (0.0-0.2) /100WBC Sodium (135-145) mmol/L Potassium (3.3-5.1) mmol/L Chloride (96-108) mmol/L Carbon Dioxide (22-29) mmol/L Anion Gap (12-20) BUN (9-16) mg/dL Creatinine (0.5-1.4) mg/dL Estim Creat Clear Calc Estimated GFR Random Glucose (60-115) mg/dL Lactic Acid 1.5 (0.5-2.0) mmol/L Calcium (8.4-10.2) mg/dL Troponin I High Sens (<3.5-35.0) ng/L Monoscreen Negative (Negative) Independent Interpretation I performed an independent interpretation of an: EKG and CT Scan (no abscess, sialoadenitis) Interpretation: Rate: 87 Rhythm: NSR [place]: normal Normal P waves. Normal XU. Normal QRS complex. ST T wave : no [place], inverted t wave III qTC: normal prior studies: normal The study has been interpreted contemporaneously by me. . Radiology Impression Discussion of test interpretation with radiology: I have reviewed the radiologist's reading. External Record Review External record reviewed: Inpatient record Prescription Management I considered prescription management with: Pain Medication Discharge Plan Discharge Clinical Impression: Acute sialoadenitis Patient Disposition: Home, Self-Care Instructions: Sialoadenitis (ED) Additional Instructions: pending tick borne panel will call if positive you incidentally had nodules on your lungs this is not the cause of your symptoms - repeat CT scan in 12 months take the augmentin tonight. you need to call ENT and be seen in 48 hours return for difficulty swallowing worsening swelling no improvement you cannot move your neck or any other concerns. SUCK ON SOUR SALENA AND SOUR CANDIES TO GET THE SALIVA FLOWING Prescriptions: New morphine 15 mg tablet 15 mg PO Q4-6H PRN (Reason: pain) Qty: 15 0RF Rx Instructions: partial fill okay; Partial Fill upon patient request. ondansetron 4 mg tablet,disintegrating 4 mg PO Q8H PRN (Reason: nausea and vomiting) Qty: 20 0RF No Action fenofibric acid [Fibricor] 105 mg tablet 105 mg PO DAILY Qty: 90 6RF lisinopril 5 mg tablet See Rx Instructions .ROUTE .COMPLEX Qty: 60 2RF Dose Instruction: TAKE 1 TABLET BY MOUTH TWICE A DAY Rx Instructions: TAKE 1 TABLET BY MOUTH TWICE A DAY diclofenac sodium [Arthritis Pain (diclofenac)] 1 % gel 2 g topical BID-QID PRN (Reason: pain (scale score 4-6)) Qty: 100 1RF Rx Instructions: apply to achilles tendon area of pain do not use on other areas amoxicillin-pot clavulanate 875-125 mg tablet 1 tab PO BID 7 Days Qty: 14 0RF (DME) blood pressure kit-extra large Kit See Rx Instructions .Route Qty: 1 0RF Rx Instructions: check blood pressure daily until stable then 1-2 times per week sertraline [Zoloft] 50 mg tablet 50 mg PO DAILY Qty: 60 3RF Rx Instructions: start with one half of a tablet and if well tolerated after one week take the whole tab every morning trazodone 50 mg tablet 100 mg PO BEDTIME Qty: 60 2RF Rx Instructions: take 3 hours prior to bed time and repeat at bedtime as needed/desired I recommend you start with two and back of if you are drowsy with that dose Referrals: Antoni Avitia [Physician] - (CALL TOMORROW) Stand Alone Forms: Work/School Release
[2023-04-22] MEDS: Ketorolac Tromethamine 15 MG/ML VIAL IVPUSH (12:41)
[2023-04-22 12:44] VITALS: O2SAT 96
--- NOTE | 2023-04-22 12:45 | PC.NURSE ---
pt axox4, nsr on monitor 82 bpm, respirations even and unlabored, airway patent. pt reports he was seen here yesterday; worsening neck swelling/pain. low grade fever 100.1F oral temp; reporting chills/nausea. pt denies vomiting. pt also reported substernal cp; ekg obtained; md to U/S at bedside. iv established. pt medicated per oct. pt awaiting ct at this time.
[2023-04-22] MEDS: Morphine Sulfate Immed Release 15 MG TABLET PO (12:48)
--- NOTE | 2023-04-22 13:05 | PC.NURSE ---
pt to ct at this time.
--- NOTE | 2023-04-22 13:30 | PC.NURSE ---
pt 's phone number: Saskia: [phone]
[2023-04-22] MEDS: iohexoL 350 MG/ML 100 ML INFUS..BTL 80 ML IV (13:34)
[2023-04-22] MEDS: 0.9 % Sodium Chloride 1,000 ML 999 ML IV (13:39)
[2023-04-22 14:00] VITALS: BP 138/67; PULSE 83; RESP 18; O2SAT 97
[2023-04-22 14:05] LABS: Monotest Negative (Negative)
[2023-04-22 15:59] VITALS: PULSE 76; RESP 20; TEMP 37.2; O2SAT 96
[2023-04-22] MEDS: Piperacillin Sodium/Tazobactam 3.375 GM in 0.9 % Sodium Chloride 50 ML IV (16:00)
--- NOTE | 2023-04-22 16:00 | PC.NURSE ---
axox4, vss, respirations even and unlabored. blood cultures obtained. iv abx infusing.
[2023-04-25 20:39] LABS: A. Phagocytphilium DNA,RT-PCR NOT DETECTED (NOT DETECTED); Babesia Microti DNA, RT-PCR NOT DETECTED (NOT DETECTED); Borrelia Miyamotoi,DNA RT-PCR NOT DETECTED (NOT DETECTED); E.Chaffeensis DNA RT-PCR NOT DETECTED (NOT DETECTED); Lyme(Borrelia ssp)DNA RT-PCR NOT DETECTED (NOT DETECTED)
== END 2023-04-22 16:49 | disposition home or self-care (01) ==
PROVIDERS: Emergency Provider Emergency Medicine
DX: K11.21 Acute sialoadenitis (principal); M79.10 Myalgia, unspecified site; I10 Essential (primary) hypertension; E78.5 Hyperlipidemia, unspecified; E66.9 Obesity, unspecified; Z68.42 Body mass index [BMI] 45.0-49.9, adult; Z87.891 Personal history of nicotine dependence
CPT/HCPCS: 36415; 70491; 71260; 80048; 83605; 84484; 85025; 86308; 87040; 87468; 87469; 87478; 87484; 87798; 96361; 96365; 96375; 99284; 99285; J1885; J2543; Q9967